=== PATIENT | female | born 1985 ===

== ENCOUNTER 2018-03-20 15:30 | Inpatient (IN) | payer OTHER ==
[~2018-03-20] VITALS: Ht 162.6 cm; Wt 79.4 kg
[2018-04-08] MEDS ORDERED: PRENATAL TABLE1 EACH PO (08:10)
== END 2018-04-10 13:36 | DRG 775 ==
LOC: LDR 04-08 06:33 → OB/GYN 04-08 06:33 → LDR 04-08 06:55 → OB/GYN 04-08 15:30
PROC: 0KQM0ZZ Repair Perineum Muscle, Open Approach (ICD-10-PCS; principal; 2018-04-08)
PROC: 10E0XZZ Delivery of Products of Conception, External Approach (ICD-10-PCS; 2018-04-08)
PROC: 4A0HXCZ Measurement of Products of Conception, Cardiac Rate, External Approach (ICD-10-PCS; 2018-04-08)
PROC: 4A033R1 Measurement of Arterial Saturation, Peripheral, Percutaneous Approach (ICD-10-PCS; 2018-04-08)
DX: O70.1 Second degree perineal laceration during delivery (principal); Z37.0 Single live birth; Z3A.40 40 weeks gestation of pregnancy